=== PATIENT | male | born 1950 | race Caucasian/White ===

== ENCOUNTER → 2016-09-13 | Outpatient (CLI) | payer OTHER, MEDICARE ==
[~2016-09-13] MED LIST: CENTRUM SILVER1 EAC2 PO; DOCOSAHEXAENOIC ACID; DONEPEZIL HCL 55 MG PO; FISH OIL 1,001000 M2 PO; FLOMAX0.4 MG PO; GAS-X125 MG PO; GLUCOSAMINE-CH1 EA15 PO; HYDROCHLOROTHIA25 M2 PO; LISINOPRIL5 MG PO; LOPRESSOR25 PO; NEXIUM40 MG PO; OSTEO BI-FLEX1 EAC1 PO; SUPER B-50 COM1 EACH PO; TYLENOL PM EX-1 EACH PO; VENTOLIN HFA 1818 GM INH; VIAGRA100 MG PO; VITAMIN B COMP1 EACH PO; VITAMIN E; VITAMIN E400 UNIT PO; ZANTAC 150MG T150 MG PO; [UNRECOGNIZED DRUG - OTHER]
== END ==
LOC: PET 08:48 → EDSTATUS 14:30
DX: C81.92 Hodgkin lymphoma, unspecified, intrathoracic lymph nodes (principal); J98.11 Atelectasis

== ENCOUNTER 2016-09-20 15:47 | Inpatient (IN) | payer OTHER, MEDICARE ==
[~2016-09-20] VITALS: Ht 182.9 cm; Wt 80.0 kg
--- NOTE | ~2016-09-20 | HC ---
[facility] [place] [address] CONSULTATION Name: WILLIE WALKER Room #: 305-P [facility] .R.#: [id number] Admission: 09/20/16 Attend Phys: Mahendra Andino MD Discharge: Date of : 46 Report #: [id number] THIS REPORT FOR: //name// CC: Néstor Cha MD [facility] Jonathan Roberts MD PRIMARY CARE PHYSICIAN: Néstor Walton M.D. REASON FOR REFERRAL: Severe paroxysmal dyspnea. HISTORY OF PRESENT ILLNESS: The patient is a 65-year-old white male who has been admitted with progressive dyspnea. A pulmonary consultation was requested. The patient is known to this physician from recent consultation as outpatient for evaluation of dyspnea and persistent infiltrates. In short summary, the patient was diagnosed with non-Hodgkin's lymphoma in 03/2014. He was found to have diffuse disease. He then underwent chemotherapy, which concluded about 2 years ago. His lymphoma was felt to be in remission. About a year ago, he started to develop memory impairment along with weight loss and progressive dyspnea on exertion. He also complained of weakness. He was seen by Dr. Jonathan Roberts, neurologist At [facility]. Workup was unremarkable. I do not believe a CT head was performed at the time. About a year ago, he was also treated for presumed pneumonia with bibasilar infiltrates. He was treated several times. With persistence of infiltrates, he was referred to the office for evaluation. Review of the chest CT showed patchy bilateral infiltrates that were mild, more in the left lower lung field. Recently, a PET scan was performed showing very mild metabolic activity involving the lower chest, otherwise no hypermetabolic activity was noted. More recently, the patient's paroxysmal dyspnea has been worsening where it necessitated ER visit at [place] over the weekend. Evaluation was said to be unremarkable. He was discharged home. I received a call again today from his . The patient is having more dyspnea. For that reason, I have recommended for the patient to be admitted for further evaluation. Otherwise, there is no recent fever, night sweats, chills, chest pain or productive cough. Other pertinent laboratory include a pulmonary function test performed on [address] [address] CONSULTATION Name: WILLIE WALKER Room #: 305-P [facility].#: [id number] Admission: 09/20/16 Attend Phys: Mahendra Andino MD Discharge: Date of : 48 Report #: [id number] 09/15/2016 showing moderately severe restrictive ventilatory defect, FVC measured 2.5 liters or 59% predicted, FEV1 measured 2.12 liters or 63% predicted, no significant bronchodilator response, lung volumes are reduced with a total lung capacity measuring 64% predicted, diffusion capacity is normal, corrected for alveolar volume. Flow volume loop is consistent with airflow obstruction. PAST MEDICAL HISTORY: As mentioned above, non-Hodgkin's lymphoma, diffuse involvement, diagnosed in 2013, status post chemotherapy, erectile dysfunction, hypertension, recent onset of poor short term memory and possible mild dementia. PAST SURGICAL HISTORY: Includes herniorrhaphy, tonsillectomy and adenoidectomy. ALLERGIES: None to medications. CURRENT MEDICATIONS: Include ouuy-gjv-qqdrisp vitamins, Aricept 5 mg once a day, Nexium 40 mg once a day, glucosamine-chondroitin supplements, HydroDIURIL 25 mg once a day, lisinopril 5 mg once a day, Toprol XL 25 mg once a day, Zantac 300 mg once a day, Viagra 100 mg p.o. p.r.n. and Flomax 0.4 mg once a day. FAMILY HISTORY: Mother with heart disease, father with lung disease, a brother has lymphoma and a form of cancer in a brother, type not specified. SOCIAL HISTORY: The patient is , is a lifetime nonsmoker. No alcohol use history. REVIEW OF SYSTEMS: As mentioned above. Prior to a year ago, the patient had been quite active. He had run regularly and had been physically active. Currently, he is not as active due to his altered mental status, paroxysmal dyspnea and weakness. PHYSICAL EXAMINATION: GENERAL: He is awake and alert, in mild distress. VITAL SIGNS: Temperature is 98 degrees Fahrenheit, pulse is 96, respiratory rate is 20, blood pressure 140/80 mmHg and saturation is 93% on room air. HEENT: Normocephalic and atraumatic. NECK: Supple, without any lymphadenopathy or thyromegaly. CHEST: Breath sounds are fair due to poor effort, few scattered crackles in the bases. No wheezes. CARDIOVASCULAR: Normal S1 and S2. There are no murmurs, rubs or gallop. There is no JVD. There is no carotid bruit. Pulses are 2+/4+ bilaterally. ABDOMEN: Soft and nontender, no organomegaly or masses felt. GENITOURINARY: Deferred. RECTAL: Deferred. EXTREMITIES: There is no edema, cyanosis or clubbing. MUSCULOSKELETAL: Notable for continuous twitching involving his right upper [facility] [address] [place] [address] CONSULTATION Name: WILLIE WALKER Room #: 305-P [facility].#: [id number] Admission: 09/20/16 Attend Phys: Mahendra Andino MD Discharge: Date of : 48 Report #: [id number] extremity, which apparently is new. LABORATORY DATA: As mentioned above. Otherwise is pending on this admission. IMPRESSION: 1. Progressive dyspnea on exertion, apparent weakness and encephalopathy in this 65-year-old white male with a past history of diffuse Non-Hodgkin's lymphoma. Etiology is unclear, but suspect possible primary neurologic process as a cause for neurologic process. With the recent PET scan findings, it does not appear to be recurrence of the lymphoma. Vasculitis is also considered. Infectious process felt to be less likely. 2. Severe paroxysmal dyspnea. I think in part it has to do with weakness perhaps diaphragmatic dysfunction. The patient's saturation is adequate. 90% on room air while clinically he feels dyspneic. Pulmonary embolus is felt to be less likely. 3. Diffuse non-Hodgkin's lymphoma, 03/2014, status post chemotherapy. Based on a recent PET scan performed on 09/13/2016, I do not think he has recurrence of disease. This study showed no evidence of significant hypermetabolic activity. 4. Encephalopathy manifested by poor short term memory, possible early dementia, as mentioned above. 5. Persistent infiltrates. This may be due to his past pneumonia. Again, the PET scan does not show any significant hypermetabolic activity. I suspect underlying pulmonary fibrosis. We will continue to follow. 6. Hypertension. RECOMMENDATIONS: Given his progressive symptoms, particularly episodic dyspnea, weakness and encephalopathy, I have recommended elective admission to undergo evaluation. I would recommend neurologic consultation, CT imaging of the brain. Complete chemistry profile including TSH is recommended. Also obtain echocardiogram. If found hypoxic, we will proceed with either a CT chest angiogram if creatinine is normal or ventilation perfusion scan. Thank you for this consultation. <ELECTRONICALLY SIGNED> By: Jules Vivar MD 09/21/16 [id number] Jules Vivar MD /nt
--- NOTE | ~2016-09-20 | HC ---
[facility] [place] [address] CONSULTATION Name: WILLIE WALKER Room #: 419-P [facility] IN ..#: [id number] Admission: 09/20/16 Attend Phys: Mahendra Andino MD Discharge: 09/22/16 Date of : 46 Report #: [id number] THIS REPORT FOR: //name// CC: Néstor Andino DATE OF SERVICE: 09/22/2016 HISTORY OF PRESENT ILLNESS: The patient is a 65-year-old white male with a history of non-Hodgkin lymphoma, recent chemotherapy, hypertension, was admitted with worsening weakness, especially over the last 3-4 weeks. He also was noted to have fasciculations in arms and abdomen. He has some reflux esophagitis. He has had worsening shortness of breath and was treated for pneumonia. He is having to rest more and his decreased endurance. He has had a hard time doing any chores at home. He was seen by Neurology. DTRs were diminished. He denied any neck injury. There is a question of possibly a neurodegenerative process and the patient underwent MRI testing. MRI of the thoracic spine was negative, but MRI of the cervical spine showed C3-C4 narrowing at 0.65 cm with cord contact and deformity. Recommendations are for a neurosurgery consult as well as for nerve conduction velocities, which can be done as an outpatient. The patient's pulmonary medicine involved as well with persistent infiltrates and need for oxygen, which is new. PAST MEDICAL HISTORY: Includes non-Hodgkin lymphoma, hypertension. He has had prior chemotherapy for his non-Hodgkin lymphoma. MEDICATIONS: Please see the full medication listing. HABITS: No history of tobacco or ETOH. ALLERGIES: No known drug allergies. MEDICATIONS: Please see the full medication listing. SOCIAL HISTORY: Lives in a house with his . No steps, was independent without gait aids. REVIEW OF SYSTEMS: Did not offer any current complaints of chest pain, shortness of breath, abdominal discomfort. PHYSICAL EXAMINATION: GENERAL: The patient is a 65-year-old white male in no obvious distress. VITAL SIGNS: Last recorded temperature 98.2, pulse 68, respirations 20, blood pressure 165/101. NEUROLOGIC: He is alert, pleasant. Nasal prong O2 is in place. Facies are symmetric. I did not note any obvious fasciculations on examination of his [facility] [address] [place] [address] CONSULTATION Name: WILLIE WALKER Room #: 419-P [facility] IN [facility].#: [id number] Admission: 09/20/16 Attend Phys: Mahendra Andino MD Discharge: 09/22/16 Date of : 48 Report #: [id number] abdomen or his upper or lower extremities. He has functional range of motion, strength is grade 4-/5. DTRs are 1. Lower extremities functional range of motion, strength is grade 4-/5. DTRs are trace to 1. No focal calf swelling. Transfers have been contact guard assistance. Gait is contact guard with a front-wheeled walker. He does have some mild to moderate cognitive deficits with some decrease insight. ASSESSMENT: A 65-year-old white male with the following problems: 1. Weakness of both upper and lower extremities. He does have significant cervical spinal stenosis with cord contact and deformity at C3-C4. Discussion with Dr. Andino regarding Neurosurgery assessment or involvement pending what they say. He may be a candidate for an acute in-hospital inpatient rehabilitation stay. They do not feel that surgery is indicated at this time. He could benefit from improving his strength and endurance. He has the multiple other medical issues as noted above. 2. Fasciculations. Deep tendon reflexes are decreased, which would go against ALS. No recommendations by Neurology for a nerve connection velocity as an outpatient. 3. Persistent pulmonary infiltrates with oxygen desaturation. 4. Non-Hodgkin's lymphoma. 5. Hypertension. 6. Recent chemotherapy. Plan is as above. We are considering an acute in-hospital inpatient rehabilitation stay depending upon Neurosurgery input. We will be glad to follow along with you in this regard. By: [id number] Néstor Pardo MD /nt
[~2016-09-20 15:47] MED LIST changes: -DOCOSAHEXAENOIC ACID; -DONEPEZIL HCL 55 MG PO; -GAS-X125 MG PO; -GLUCOSAMINE-CH1 EA15 PO; -VIAGRA100 MG PO; -VITAMIN B COMP1 EACH PO; -VITAMIN E; -[UNRECOGNIZED DRUG - OTHER]
[2016-09-20] MEDS ORDERED: VITAMIN B COMP1 EACH PO (15:55)
[2016-09-20] MEDS ORDERED: DONEPEZIL HCL 55 MG PO (15:57)
[2016-09-20] MEDS ORDERED: [UNRECOGNIZED DRUG - OTHER] (15:57)
[2016-09-20] MEDS ORDERED: DOCOSAHEXAENOIC ACID (15:57)
[2016-09-20] MEDS ORDERED: VITAMIN E (15:57)
[2016-09-20] MEDS ORDERED: GLUCOSAMINE-CH1 EA15 PO (15:59)
[2016-09-20] MEDS ORDERED: VIAGRA100 MG PO (16:02)
[2016-09-20] MEDS ORDERED: GAS-X125 MG PO (16:02)
[2016-09-20 18:18] LABS: HEMATOCRIT 45.8 % (42.0-52.0); HEMOGLOBIN 16.2 gm/dL (14.0-18.0); MCH 33.2 pg (26.0-34.0); MCHC 35.4 g/dL (28.0-37.0); MCV 93.7 fL (80.0-100.0); RBC 4.89 mil/uL (4.50-6.00); RDW 12.5 % (10.5-14.5); WBC 5.7 thou/uL (4.0-11.0)
[2016-09-20 18:26] LABS: CREATININE 0.7 mg/dL (0.7-1.3); POTASSIUM 4.1 mmol/L (3.5-5.1)
[2016-09-20 18:31] LABS: ALBUMIN 3.7 g/dL (3.4-5.0); TOTAL PROTEIN 6.9 g/dL (6.4-8.2)
[2016-09-20 19:16] VITALS: BP 153/108
[2016-09-20 20:00] VITALS: BP 147/95
[2016-09-20 23:45] VITALS: BP 144/99
[2016-09-21 03:40] VITALS: BP 137/81
[2016-09-21 05:11] LABS: HEMATOCRIT 45.7 % (42.0-52.0); HEMOGLOBIN 16.1 gm/dL (14.0-18.0); MCH 33.2 pg (26.0-34.0); MCHC 35.3 g/dL (28.0-37.0); RBC 4.86 mil/uL (4.50-6.00); RDW 12.7 % (10.5-14.5); WBC 5.6 thou/uL (4.0-11.0)
[2016-09-21 05:18] LABS: CREATININE 0.7 mg/dL (0.7-1.3); POTASSIUM 4.2 mmol/L (3.5-5.1)
[2016-09-21 08:29] VITALS: BP 119/81
[2016-09-21 15:38] VITALS: BP 100/33
[2016-09-21 16:00] LABS: URINE BILIRUBIN NEGATIVE (Negative); URINE BLOOD NEGATIVE (Negative); URINE COLOR YELLOW; URINE GLUCOSE-RANDOM* NEGATIVE (Negative); URINE KETONES NEGATIVE (Negative); URINE NITRITE NEGATIVE (Negative); URINE PROTEIN (DIPSTICK) TRACE (Negative); URINE SPECIFIC GRAVITY 1.025 (1.003-1.035); URINE UROBILINOGEN 0.2 E.U./dl (0.2-1.0)
[2016-09-21 20:15] VITALS: BP 115/82
[2016-09-22 03:50] VITALS: BP 137/87
[2016-09-22 07:38] LABS: ABG SAMPLE TYPE ARTERIAL; BE(vivo) 5.3 mmol/L (-2 to +3); HCO3 33.3 mmol/L (22.0-26.0); LACTATE 0.48 mmol/L (0.5-2.0); O2(CT) 21.2 mL/dL (15.0-23.0); O2Hb 96.4 % (92.0-98.0); PCO2 63.2 mmHg (35.0-45.0); PO2 106.9 mmHg (80.0-100.0); STICK SITE L.RADIAL; sO2 97.5 % (92.0-98.0); tCO2 35.3 mmol/L (24.0-30.0)
[2016-09-22 07:50] VITALS: BP 165/101
[2016-09-22 15:22] VITALS: BP 158/97
[2016-09-22] MEDS ORDERED: MIRALAX17 GM PO (15:33)
[2016-09-24 13:10] LABS: ALPHA TOCOPHEROL 12.6 mg/L (5.3-17.5)
== END 2016-09-22 18:18 | DRG 91 ==
LOC: 3N 15:47 → 4E 09-22 14:28
PROVIDERS: Hospitalist; Internal Medicine Pulmonary Disease; Psychiatry & Neurology Neurology
DX: R25.3 Fasciculation (principal); J18.9 Pneumonia, unspecified organism; G93.40 Encephalopathy, unspecified; C85.90 Non-Hodgkin lymphoma, unspecified, unspecified site; Z92.21 Personal history of antineoplastic chemotherapy; I10 Essential (primary) hypertension; Z82.49 Family history of ischemic heart disease and other diseases of the circulatory system; Z80.9 Family history of malignant neoplasm, unspecified; Z79.899 Other long term (current) drug therapy; M48.02 Spinal stenosis, cervical region
CPT/HCPCS: 10096

== ENCOUNTER 2016-09-22 16:18 | Inpatient (IN) | payer OTHER, MEDICARE ==
[~2016-09-22] VITALS: Ht 182.9 cm; Wt 79.7 kg
--- NOTE | ~2016-09-22 | PLAN ---
[facility] [place] [address] REHAB UNIT PLAN OF CARE Name: WILLIE WALKER Room #: 509-P [facility] IN M.R.#: [id number] Admission: 09/22/16 Attend Phys: Néstor Pardo MD Discharge: Date of : 48 Report #: [id number] THIS REPORT FOR: //name// CC: Néstor Walton The patient is seen back today in followup. He is in no distress. He is on 2 liters nasal prong O2. On examination, I do see definite fasciculations on both upper and lower extremities. His DTRs; however, continued decreased. Functionally, he is contact guard with basic transfers with gait contact guard 500 feet without a device. He does have some balance that is noted. He is needing min assist with lower body dressing. He has mild comprehensive deficits noted in speech therapy. There is a question regarding his swallowing and this will be further evaluated. ASSESSMENT: 1. Weakness with fasciculations, suspect neuromuscular disease/neurodegenerative disease. 2. Recurrent "pneumonia." 3. History of nonhodgkin's lymphoma. 4. Hypertension. PLAN: The overall plan of care is based on the preadmission screen, post-admission physician evaluation and information garnered from therapy assessments. 1. Estimated length of stay is probably around 1-2 weeks depending upon his progress and his functional needs. 2. Medical prognosis is reasonably good from a rehab perspective. 3. Anticipated interventions includes the interdisciplinary acute inpatient rehabilitation program with PT, OT and speech, rehab nursing assisting regarding medication management, skin care prophylaxis, bowel and bladder issues and nursing education. Case management is involved as well as the client experience consultant physicians. 4. Anticipated functional outcomes would be for the patient to become modified independent with transfers, mobility and ADLs, to improve as far as his cognition and have further evaluated. Hopefully, he can be weaned off his O2. Goal is to get him back home and then he will need to see neurology as an outpatient for further diagnostic testing and evaluation. 5. Discharge destination would be back to the home setting. 6. Expected therapy by discipline includes PT, OT and speech 1 hour per day each five days a week throughout the duration of the acute inpatient rehabilitation stay. By: [id number] Néstor Pardo MD /nt
--- NOTE | ~2016-09-22 | HC ---
[facility] [place] [address] CONSULTATION Name: DENISEWILLIE Gomez Room #: 509-P [facility] IN ..#: [id number] Admission: 09/22/16 Attend Phys: Néstor Pardo MD Discharge: Date of : 48 Report #: [id number] THIS REPORT FOR: //name// CC: Néstor Walton DATE OF SERVICE: 09/24/2016 NEUROBEHAVIORAL STATUS EXAM ATTENDING PHYSICIAN: Néstor Pardo M.D. SOLAR [employer]OTOVOLTAIC CREW LEAD: Oral Winn, PhD CLINICAL PRESENTATION: The patient is a 65-year-old male admitted to the rehabilitation unit at [facility] for comprehensive inpatient rehabilitation program to improve functional mobility, activities of daily living and self-care and mental status secondary to weakness of upper and lower extremity with significant cervical spinal cord stenosis. He also presents with fasciculations, persistent pulmonary infiltrates with oxygen desaturation, non-Hodgkin lymphoma, hypertension and chemotherapy in 2013. The patient reportedly was diagnosed with a non-Hodgkin lymphoma in 03/2014 and received chemotherapy with remission in 2014. He returned home, had been resuming his activities of daily living until recently in which he was unable to catch his breath and complete the chore of mowing his lawn, subsequent hospitalization was required. His reports that he had a noticeable diminished or decrease in cognitive functioning about 2 years ago, which was initially attributed to a chemo brain associated with the chemotherapy and treatment for non-Hodgkin lymphoma. However, his cognitive functioning had never recovered. The family is now concerned about ALS as his current presentation appears consistent with a motor neuron disease. A complete description of his medical condition, history and medications can be found in his medical record. Neuropsychological consultation was requested in order to provide assistance in the assessment of cognitive and emotional status and to provide recommendations and services. Prior to this recent medical event, he was living independently with his in their home. The patient has 3 children. He was employed as a [employer] prior to his [employer]. He has a very supportive family. TECHNIQUES UTILIZED: Clinical interview, review of medical records, staff consultation and behavioral observation, mini mental status exam 2 standard version and clock drawing and family interview - , son and daughter. EXAMINATION FINDINGS: The patient was alert and cooperative with the [facility] [address] [place] [address] CONSULTATION Name: WILLIE WALKER Patricia Room #: 509-P [facility] IN ..#: [id number] Admission: 09/22/16 Attend Phys: Néstor Pardo MD Discharge: Date of : 48 Report #: [id number] assessment. He had difficulty in describing events surrounding his admission. He presents with diminished vocal quality and has more of a whisper. He also has minimal upper extremity movement. He is described as having become increasingly dependent on his for assistance. Difficulty with sleep, memory, word finding and delay processing is noted. Energy level is more fatigue. Subjective anxiety is described. Family also attributed the decreased initiative in motivation and is somewhat concerned about it, this is related to depression. His performance on the MMSE 2 brief version was extremely low with a raw score of 10/16. He was 3/3 for initial registration, 4/5 for orientation to time, 3/[address] and 0/3 for immediate recall of 3 items after a brief time delay and distraction. Recall was 3/3 when given options suggesting an improved function with recognition rather than free recall suggesting retrieval deficits. His performance on the MMSE 2 standard version was extremely low with a raw score of 18/30. The patient was 0/5 for serial 7's, 2/2 for naming, 1/1 for repetition, 3/3 for comprehension. He could read and follow a single command. The patient also was able to write a sentence. He was unable to copy a simple geometric design. He could draw a clock, place the numbers and set the hands at a designated time. This type of presentation suggests greater deficits in frontotemporal functioning, which is often seen in ALS . DIAGNOSTIC IMPRESSION: 1. Neurocognitive disorder, unspecified, without behavior disorder - extent to be determined, [id number] at this time. 2. Adjustment disorder with anxious mood. SUMMARY AND RECOMMENDATIONS: The patient is presenting with neurocognitive deficits suggesting frontotemporal executive dysfunction. This type of neurocognitive deficit has been associated with ALS. Behavioral strategies were discussed with his family that include encouraging the patient to take increased initiative in regard to responding to questions and requests. He has decreased speed of processing which requires increased time. However, the patient will also benefit from encouragement to take initiative in asking for help when necessary. Follow up neurocognitive assessment may be of benefit to clarify the severity of cognitive disorder as his medical condition stabilizes. However, neurodegenerative changes which are often associated with ALS do not often resolve but rather decline. [facility] [address] [place] [address] CONSULTATION Name: WILLIE WALKER Room #: 509-P [facility] IN M.R.#: [id number] Admission: 09/22/16 Attend Phys: Néstor Pardo MD Discharge: Date of : 48 Report #: [id number] Thank you very much for allowing me to provide the consultation on this patient. By: [id number] Oral Winn, PhD /nt
--- NOTE | ~2016-09-22 | H ---
[facility] [place] [address] HISTORY AND PHYSICAL Name: WILLIE WALKER Room #: 509-P [facility] IN .R.#: [id number] Admission: 09/22/16 Attend Phys: Néstor Pardo MD Discharge: Date of : 46 Report #: [id number] THIS REPORT FOR: //name// CC: Néstor Walton DATE OF SERVICE: 09/22/2016 HISTORY OF PRESENT ILLNESS: The patient is a 65-year-old white male with history of nonhodgkin's lymphoma, recent chemotherapy, hypertension, was admitted with worsening weakness, especially over the last 3-4 weeks. There was a note of fasciculations in his arms and abdomen. He also has some reflux esophagitis. He had worsening shortness of breath and was treated for pneumonia. He was needing to rest more and had decreasing endurance. He is having a hard time doing chores at home. He was seen by neurology. DTRs were diminished. He denied any neck injury. There was a question of a possible neurodegenerative process. MRI testing of the thoracic spine was negative. MRI of the cervical spine showed C3-4 narrowing at 0.65 cm with cord contact and deformity. The films were reviewed through neurosurgery at [facility] and the patient was not felt to be a surgical candidate at this time. He will need to go for outpatient neurology evaluation for nerve conduction velocities. Pulmonary medicine has been following regarding his persistent infiltrates and need for oxygen, which is new. He has had a significant functional decline and has now been admitted for an acute in-hospital inpatient rehabilitation stay to try to maximize his functional independence, improve his endurance. PAST MEDICAL HISTORY: Includes nonhodgkin's lymphoma, hypertension. He has had prior chemotherapy for his nonhodgkin's lymphoma, MEDICATIONS: Please see the full medication listing. HABITS: No history of tobacco or ETOH. ALLERGIES: No known drug allergies. MEDICATIONS: Please see the full medication listing. SOCIAL HISTORY: Lives in a house with his . No steps, was independent without gait aids. REVIEW OF SYSTEMS: No complaints of chest pain, shortness of breath or abdominal discomfort. PHYSICAL EXAMINATION: GENERAL: A 65-year-old white male in no obvious distress. VITAL SIGNS: Temperature 98.7, pulse 77, respirations 18, blood pressure [address] [address] HISTORY AND PHYSICAL Name: WLILIE WALKER Room #: 509-P [facility] IN [facility].#: [id number] Admission: 09/22/16 Attend Phys: Néstor Pardo MD Discharge: Date of : 46 Report #: [id number] 145/94. GENERAL: The patient was seen earlier and was sleepy. Facies are symmetric. HEENT: Appeared to be benign. I did not check for fasciculations today. No obvious fasciculations were seen during his exam yesterday. CHEST: Sounded clear. CARDIOVASCULAR: Regular rate and rhythm. ABDOMEN: Bowel sounds positive, nontender. GENITOURINARY AND RECTAL: Deferred. NEUROLOGIC: He has functional range of motion of the upper extremities, strength grade 4-/5. Lower extremities revealed functional range of motion, strength grade 4-/5-4/5. DTRs were trace to 1. No focal calf swelling. He has been contact assistance with functional mobility and has some noted mild to moderate cognitive deficits. ASSESSMENT: A 65-year-old white male with the following problem list: 1. Weakness of both upper and lower extremities with significant cervical spinal cord stenosis. 2. Fasciculations. Recommendations are for neurology to do nerve conduction velocities as an outpatient. 3. Persistent pulmonary infiltrates with oxygen desaturation. 4. Nonhodgkin's lymphoma. 5. Hypertension. 6. Recent chemotherapy. PLAN: The patient is admitted for acute in-hospital inpatient rehabilitation. From a post admission physician evaluation perspective, there are no relevant changes since the preadmission screening. Please see the above review of prior and current medical and functional conditions and comorbidities. Please see the patient's prior and current functional status. As far as risk of complications, he does have multiple medical comorbidities as noted above. Initial plan of care involves the interdisciplinary acute inpatient rehabilitation program with the corporate travel consultant physicians assisting. Measurable functional goals would be for him to improve as far as strength, mobility and endurance, independence with mobility and ADLs and also have cognition further evaluated. Prognosis is reasonably good with estimated length of stay, probably fairly short around 7-14 days if warranted. Potential barriers would include his multiple medical comorbidities and decreased functional status. The patient meets diagnostic criteria for an acute in-hospital inpatient rehabilitation stay. He meets medical necessity criteria. The consult physicians will continue to follow. He is continuing on nasal prong O2. He [address] [address] HISTORY AND PHYSICAL Name: WILLIE WALKER Room #: 509-P [facility] IN ..#: [id number] Admission: 09/22/16 Attend Phys: Néstor Pardo MD Discharge: Date of : 46 Report #: [id number] does have the tolerance for an acute rehab level and has appropriate discharge goals back to the home setting. By: [id number] Néstor Pardo MD /nt
--- NOTE | ~2016-09-22 | D ---
[facility] [place] [address] DISCHARGE SUMMARY Name: WILLIE WALKER Room #: 509-P [facility] IN M.R.#: [id number] Admission: 09/22/16 Attend Phys: Néstor Pardo MD Discharge: 09/27/16 Date of : 46 Report #: [id number] THIS REPORT FOR: //name// CC: Néstor Walton DATE OF SERVICE: 09/27/2016 The patient was admitted for acute in-hospital inpatient rehabilitation with noted weakness with fasciculations, suspect neuromuscular disease/neurodegenerative disease. He has had problems with recurrent pneumonia, prior history of non-Hodgkin lymphoma and hypertension. Please see the full admission note dictation. HOSPITAL COURSE: The patient was involved in the inpatient rehabilitation program. He was working in therapies with contact guard with basic transfers, contact guard for ambulation 500 feet without a device. He does have some balance deficits that was noted. He was needing min assist with lower body dressing. He had some mild comprehensive deficits with speech therapy. He continued to need oxygen, nasal prong O2. He did have definite fasciculations of both upper and lower extremities. MRI of the cervical spine does show severe C3-C4 narrowing, but he was not felt to be a surgical candidate at this time as per Neurosurgery film review through [facility]. During the night last night, he started to have a decline in his respiratory status. He was already showing his CO2 over 80. He was placed on BiPAP and transferred to CCU for further monitoring and treatment. DISCHARGE DIAGNOSES: 1. Weakness with fasciculations, suspect neuromuscular disease/neurodegenerative disease. 2. Acute respiratory failure, now transferred to the acute Med/Surg telemetry deng. 3. Recurrent pneumonia. 4. History of non-Hodgkin lymphoma. 5. Hypertension. DISCHARGE MEDICATIONS AND DISCHARGE ACTIVITY: As per the accepting service. By: [id number] Néstor Pardo MD /nt
[~2016-09-22 16:18] MED LIST changes: +DOCOSAHEXAENOIC ACID; +DONEPEZIL HCL 55 MG PO; +GAS-X125 MG PO; +GLUCOSAMINE-CH1 EA15 PO; +MIRALAX17 GM PO; +VIAGRA100 MG PO; +VITAMIN B COMP1 EACH PO; +VITAMIN E; +[UNRECOGNIZED DRUG - OTHER]
[2016-09-22 19:38] VITALS: BP 149/87
[2016-09-23 05:51] VITALS: BP 171/100
[2016-09-23 06:33] VITALS: BP 162/103
[2016-09-23 09:56] VITALS: BP 145/94
[2016-09-23 16:15] VITALS: BP 133/73
[2016-09-24 02:56] VITALS: BP 163/111
[2016-09-24 03:10] VITALS: BP 162/102
[2016-09-24 04:51] VITALS: BP 158/99
[2016-09-24 16:17] VITALS: BP 147/86
[2016-09-25 04:53] VITALS: BP 138/85
[2016-09-25 11:11] VITALS: BP 175/103
[2016-09-25 15:31] VITALS: BP 145/88
[2016-09-26 04:44] LABS: HEMATOCRIT 42.8 % (42.0-52.0); HEMOGLOBIN 15.5 gm/dL (14.0-18.0); MCH 32.8 pg (26.0-34.0); MCHC 36.2 g/dL (28.0-37.0); MCV 90.7 fL (80.0-100.0); PLATELET COUNT 277 thou/uL (150-400); RBC 4.72 mil/uL (4.50-6.00); RDW 12.4 % (10.5-14.5); WBC 5.9 thou/uL (4.0-11.0)
[2016-09-26 04:48] LABS: MANUAL DIFF YES
[2016-09-26 04:57] VITALS: BP 140/97
[2016-09-26 05:00] LABS: CALCIUM 9.1 mg/dL (8.5-10.1); CREATININE 0.6 mg/dL (0.7-1.3); MAGNESIUM 1.8 mg/dL (1.8-2.4); POTASSIUM 3.6 mmol/L (3.5-5.1)
[2016-09-26 06:35] LABS: ABSOLUTE NEUTROPHILS 4.4 thou/uL (1.4-8.2); ATYPICAL LYMPHS 3 %; TOTAL CELL COUNT 100
[2016-09-26 08:00] VITALS: BP 132/87
[2016-09-26 15:30] VITALS: BP 130/86
[2016-09-27 04:56] LABS: ALBUMIN 3.5 g/dL (3.4-5.0); ALKALINE PHOSPHATASE 79 U/L (46-116); BUN 13 mg/dL (7-18); CALCIUM 8.9 mg/dL (8.5-10.1); CHLORIDE 82 mmol/L (98-107); CREATININE 0.5 mg/dL (0.7-1.3); GLUCOSE 123 mg/dL (74-106); MAGNESIUM 1.8 mg/dL (1.8-2.4); POTASSIUM 3.7 mmol/L (3.5-5.1); SGOT 26 U/L (15-37); SGPT 45 U/L (30-65); SODIUM 125 mmol/L (136-145); TOTAL PROTEIN 6.3 g/dL (6.4-8.2)
[2016-09-27 05:01] LABS: CO2 > 45 mmol/L (21-32)
[2016-09-27 05:12] VITALS: BP 169/96
[2016-09-27 05:45] LABS: ABG SAMPLE TYPE ARTERIAL; BE(vivo) 15.6 mmol/L (-2 to +3); HCO3 46.6 mmol/L (22.0-26.0); LACTATE 0.73 mmol/L (0.5-2.0); O2(CT) 22.1 mL/dL (15.0-23.0); O2Hb 95.2 % (92.0-98.0); PO2 91.5 mmHg (80.0-100.0); pH 7.351 (7.360-7.450); sO2 96.2 % (92.0-98.0); tCO2 49.2 mmol/L (24.0-30.0)
[2016-09-27 05:46] LABS: PCO2 86.1 mmHg (35.0-45.0); STICK SITE R.RADIAL
[2016-09-27] MEDS ORDERED: ENOXAPARIN40 MG/0.1 SUBQ (14:03)
== END 2016-09-27 06:55 | disposition short-term general hospital (02) | DRG 551 ==
PROVIDERS: Nurse Practitioner; Nurse Practitioner Acute Care
PROC: 5A09357 Assistance with Respiratory Ventilation, Less than 24 Consecutive Hours, Continuous Positive Airway Pressure (ICD-10-PCS; principal; 2016-09-27)
DX: M48.02 Spinal stenosis, cervical region (principal); J96.00 Acute respiratory failure, unspecified whether with hypoxia or hypercapnia; J18.9 Pneumonia, unspecified organism; E87.1 Hypo-osmolality and hyponatremia; R25.3 Fasciculation; G70.9 Myoneural disorder, unspecified; I10 Essential (primary) hypertension; G31.84 Mild cognitive impairment of uncertain or unknown etiology; F43.22 Adjustment disorder with anxiety; G47.00 Insomnia, unspecified; Z85.72 Personal history of non-Hodgkin lymphomas
CPT/HCPCS: 10112

== ENCOUNTER 2016-09-27 06:26 | Inpatient (IN) | payer OTHER, MEDICARE ==
[2016-09-27 08:49] VITALS: BP 105/66
[2016-09-27 08:49] LABS: ABG SAMPLE TYPE ARTERIAL; HCO3 47.6 mmol/L (22.0-26.0); LACTATE 0.85 mmol/L (0.5-2.0); O2(CT) 21.6 mL/dL (15.0-23.0); O2Hb 97.1 % (92.0-98.0); PO2 131.6 mmHg (80.0-100.0); pH 7.365 (7.360-7.450); sO2 98.4 % (92.0-98.0); tCO2 50.2 mmol/L (24.0-30.0)
[2016-09-27 08:50] LABS: PCO2 85.2 mmHg (35.0-45.0); Pressure Support 18 cm H20; STICK SITE L.RADIAL
[2016-09-27 11:57] VITALS: BP 109/63
[2016-09-27 12:38] LABS: BUN 17 mg/dL (7-18); CALCIUM 8.8 mg/dL (8.5-10.1); CHLORIDE 85 mmol/L (98-107); CREATININE 0.7 mg/dL (0.7-1.3); GLUCOSE 106 mg/dL (74-106); POTASSIUM 3.9 mmol/L (3.5-5.1); SODIUM 126 mmol/L (136-145)
[2016-09-27 12:42] LABS: CO2 > 45 mmol/L (21-32)
[2016-09-27] MEDS ORDERED: ENOXAPARIN40 MG/0.1 SUBQ (14:03)
[2016-09-27 14:12] LABS: ABG SAMPLE TYPE ARTERIAL; BE(vivo) 9.8 mmol/L (-2 to +3); HCO3 34.4 mmol/L (22.0-26.0); LACTATE 3.12 mmol/L (0.5-2.0); O2(CT) 20.9 mL/dL (15.0-23.0); O2Hb 97.6 % (92.0-98.0); PCO2 45.6 mmHg (35.0-45.0); Pressure Support 18 cm H20; STICK SITE R.RADIAL; pH 7.496 (7.360-7.450); sO2 99.3 % (92.0-98.0); tCO2 35.8 mmol/L (24.0-30.0)
== END 2016-09-27 15:44 | disposition short-term general hospital (02) | DRG 193 ==
LOC: 2N 06:26
PROVIDERS: Nurse Practitioner
PROC: 5A09357 Assistance with Respiratory Ventilation, Less than 24 Consecutive Hours, Continuous Positive Airway Pressure (ICD-10-PCS; principal; 2016-09-27)
DX: J18.9 Pneumonia, unspecified organism (principal); J96.02 Acute respiratory failure with hypercapnia; E87.1 Hypo-osmolality and hyponatremia; I10 Essential (primary) hypertension; K21.9 Gastro-esophageal reflux disease without esophagitis; R25.3 Fasciculation; M48.02 Spinal stenosis, cervical region; G47.00 Insomnia, unspecified; Z85.72 Personal history of non-Hodgkin lymphomas
CPT/HCPCS: 10081